=== PATIENT | male | born 1950 | race Caucasian/White ===

== ENCOUNTER → 2023-02-16 | Outpatient (CLI) | payer MEDICARE, OTHER, SELFPAY ==
--- NOTE | 2023-02-16 08:34 | CT_ITS ---
CT RIGHT LOWER EXTREMITY WITH 3-D IMAGING CLINICAL INDICATION: RT KNEE MARQUISE PROTOCOL TECHNIQUE: Axial CT images of the right lower extremity (including right hip, right knee, and right ankle) was performed without IV contrast material. Coronal and sagittal reformats were provided. RADIATION DOSAGE (If Supplied By Facility): CTDIvol = ( 18.76 ) mGy, DLP = ( 1293.13 ) mGycm COMPARISON: No relevant prior comparison study available. FINDINGS: Bones: There is degenerative arthrosis of the right hip joint with mild joint space narrowing, marginal osteophyte formation, and small subchondral cyst formation. There is moderate degenerative arthrosis of the medial femorotibial compartment of the right knee with moderate joint space narrowing, marginal osteophyte formation, and subchondral sclerosis. There is mild degenerative arthrosis of the patellofemoral and lateral femorotibial compartments of the right knee with marginal osteophyte formation. There is a 8 mm ossified loose body at the anterolateral femorotibial joint line (sagittal series 605 image 24; coronal series 604 image 29). There are old avulsion fractures inferior to the medial malleolus of the distal tibia. Osseous structures are normal without evidence of acute fracture or dislocation. No lytic or blastic osseous masses. Soft Tissues: There is a small right knee joint effusion. The deep soft tissue structures are unremarkable. The superficial soft tissues are unremarkable without evidence of edema, hematoma, or foreign body. CT/Extremity Lower without Contra IMPRESSION: Tricompartment degenerative arthrosis of the right knee, most pronounced in the medial femorotibial compartment. 8 mm ossified loose body at the anterolateral femorotibial joint line. Small right knee joint effusion. Electronically Signed: Mark Monzon MD at 10:12 EDT ,
--- NOTE | 2023-02-16 08:36 | EKG12_ITS ---
Test Reason : PREOP Blood Pressure : / mmHG Vent. Rate : 061 BPM Atrial Rate : 061 BPM P-R Int : 178 ms QRS Dur : 092 ms QT Int : 426 ms P-R-T Axes : 034 020 037 degrees QTc Int : 428 ms Normal sinus rhythm Normal ECG Confirmed by JOB MALIK, LONNIE ([id number]), editor continuity and script TETE ANDERSON ([id number]) on 02/20/2023 12:44:47 PM Referred By: London Mayberry Confirmed By:ASHLEY KAISER MD
[2023-02-16 09:25] LABS: Absolute Lymphocyte Count 1.85 X10^3/uL (0.83-4.51); Absolute Neutrophil Count 4.5 X10^3/uL (2.0-7.7); Basophil# 0.03 X10^3/uL; Basophil% 0.4 % (0-1); Eosinophil# 0.22 X10^3/uL; Hematocrit 49.2 % (40-54); Hemoglobin 15.2 g/dL (13.0-16.5); Lymphocyte # 1.85 X10^3/ul (0.83-4.51); Lymphocyte % 25.1 % (19-41); Mean Corp Hgb Conc 30.9 g/dL (32-36); Mean Platelet Vol. 10.1 fl (6.2-12.0); Monocyte# 0.68 X10^3/uL; Monocyte% 9.2 % (0-10); NRBC Flagged by Analyzer 0 % (0-5); Neutrophil # 4.53 X10^3/uL (2.7-7.7); Neutrophil % 61.5 % (47-70); Platelet Count 200 K/mm3 (150-450); RBC Distribution Width CV 13.4 % (11.6-14.6); RBC Distribution Width SD 47.4 fl (35.1-43.9); Red Blood Count 5.07 M/mm3 (4.6-6.2); White Blood Count 7.4 K/mm3 (4.4-11.0)
[2023-02-16 09:34] LABS: Albumin, Serum 3.5 g/dL (3.2-5.0); Anion Gap 4 (5-15); BUN 21 mg/dL (7-18); BUN/Creat Ratio 24.9 RATIO (10-20); Calcium,Total 8.8 mg/dL (8.5-10.1); Chloride 108 mmol/L (98-107); Creatinine, Serum 0.84 mg/dL (0.70-1.30); EST Glomerular Filtration Rate 95 mL/min (>60); Est Glom Filt Rate - Afr Amer 115 mL/min (>60); Glucose 99 mg/dL (74-106); Potassium 4.1 mmol/L (3.5-5.1); Sodium Level 143 mmol/L (136-145)
== END | disposition home or self-care (01) ==
LOC: CT 08:31
PROVIDERS: PCP Family Medicine; Referring Provider Specialist; Visit Provider Specialist
DX: Z01.818 Encounter for other preprocedural examination (principal); M17.11 Unilateral primary osteoarthritis, right knee; Z01.810 Encounter for preprocedural cardiovascular examination
CPT/HCPCS: 36415; 73700; 80048; 82040; 85025; 93005